=== PATIENT | female | born 1980 | race Two or more races ===

== ENCOUNTER 2018-10-16 12:32 | Observation (INO) | payer BC ==
[~2018-10-16] VITALS: Ht 160 cm; Wt 77.1 kg
[2018-10-16] MEDS ORDERED: PREN-99 PO (12:59)
[2018-10-16] MEDS ORDERED: PRED5TAB PO (13:00)
[2018-10-16 14:17] LABS: PARTIAL THROMBOPLASTIN TIME 38.1 sec (23.4-31.0); PROTHROMBIN TIME 10.3 sec (9.6-11.0)
[2018-10-16 14:31] LABS: BASOPHILS % 0.3 % (0.0-2.0); EOSINOPHILS % 0.6 % (0.0-5.0); HEMATOCRIT. 27.6 % (36.0-48.0); HEMOGLOBIN. 9.6 g/dL (12.0-16.0); LYMPHOCYTES % 7.6 % (20.0-50.0); MEAN CORPUSCULAR HEMOGLOBIN 29.9 pg (28.0-32.0); MEAN CORPUSCULAR VOLUME 86.3 fL (81.0-99.0); MEAN PLATELET VOLUME 10.1 fl (7.4-10.4); MONOCYTES % 6.8 % (2.0-8.0); NEUTROPHILS % 84.7 % (40.0-76.0); PLATELET 232 x1000/uL (130-400); RED CELL DISTRIBUTION WIDTH 13.6 % (11.6-14.6)
== END 2018-10-16 15:00 | disposition home or self-care (01) ==
LOC: 8 EST LDRP 12:32
PROVIDERS: ADMIT Obstetrics & Gynecology; ATTEND Obstetrics & Gynecology
DX: O26.892 Other specified pregnancy related conditions, second trimester (principal); R10.9 Unspecified abdominal pain; O26.832 Pregnancy related renal disease, second trimester; Z87.39 Personal history of other diseases of the musculoskeletal system and connective tissue; Z3A.21 21 weeks gestation of pregnancy
CPT/HCPCS: 36415; 85025; 85610; 85730; 99281; G0378

== ENCOUNTER 2018-10-27 10:48 | Observation (INO) | payer BC ==
[~2018-10-27] VITALS: Ht 160 cm; Wt 77.6 kg
[~2018-10-27 10:48] MED LIST: PRED5TAB PO; PREN-99 PO
[2018-10-27] MEDS: LACTATED RINGERS 1,000 ML IV SCH ×2 (13:30→16:13)
[2018-10-27 13:39] LABS: BASOPHILS % 0.3 % (0.0-2.0); EOSINOPHILS % 0.3 % (0.0-5.0); HEMATOCRIT. 29.5 % (36.0-48.0); HEMOGLOBIN. 10.4 g/dL (12.0-16.0); LYMPHOCYTES % 10.4 % (20.0-50.0); MONOCYTES % 5.5 % (2.0-8.0); NEUTROPHILS % 83.5 % (40.0-76.0); PLATELET 207 x1000/uL (130-400); RED BLOOD CELL COUNT 3.47 mill/uL (4.2-5.4); RED CELL DISTRIBUTION WIDTH 14.1 % (11.6-14.6)
[2018-10-27 13:50] VITALS: BP 115/60
[2018-10-27] MEDS ORDERED: SODIUM CHLORIDE 0.9% 10ML VIAL ONE (14:38)
[2018-10-27] MEDS ORDERED: CEFAZOLIN SODIUM 1000MG/VIAL ONE (14:38)
[2018-10-27] MEDS ORDERED: NIFEDIPINE XL 30MG TAB PO SCH (15:15)
[2018-10-27] MEDS ORDERED: ONDANSETRON HCL 4MG/2ML INJ IV PRN (15:15)
[2018-10-27] MEDS ORDERED: ACETAMINOPHEN 325MG TABLET PO PRN (15:15)
[2018-10-27] MEDS ORDERED: INDOMETHACIN 25MG CAPSULE PO SCH (17:00)
== END 2018-10-27 18:45 | disposition home or self-care (01) ==
LOC: 8 EST LDRP 10:48 → 8 EST A/PP 16:12
PROVIDERS: ADMIT Obstetrics & Gynecology; ATTEND Obstetrics & Gynecology
DX: O26.892 Other specified pregnancy related conditions, second trimester (principal); M54.5 Low back pain; R10.30 Lower abdominal pain, unspecified; Z3A.23 23 weeks gestation of pregnancy
CPT/HCPCS: 36415; 85025; 99281; G0378; J0690; J7120

== ENCOUNTER 2018-10-27 12:03 | Day surgery (SDC) | payer BC ==
[2018-10-27] MEDS ORDERED: BUPIVACAINE HCL/DEXTROSE/PF 0.75% 2ML AMP INJ ONE (14:29)
[2018-10-27] MEDS ORDERED: ONDANSETRON HCL 4MG/2ML INJ IV PRN (15:00)
[2018-10-27] MEDS ORDERED: LABETALOL 5MG/ML SYR 20 MG/4 ML SYRINGE IV PRN (15:00)
[2018-10-27] MEDS ORDERED: MEPERIDINE HCL/PF 25MG/ML CPJ IV PRN (15:00)
[2018-10-27] MEDS ORDERED: HYDROMORPHONE HCL/PF 2MG/ML CPJ IV PRN (15:00)
== END 2018-10-27 15:30 | disposition home or self-care (01) ==
LOC: ER 12:03 → OR 14:00
PROVIDERS: ATTEND Obstetrics & Gynecology
DX: N88.3 Incompetence of cervix uteri (principal); Z79.899 Other long term (current) drug therapy
CPT/HCPCS: 59320; 99285; J3490